=== PATIENT | female | born 1980 | race Caucasian/White ===

== ENCOUNTER 2025-05-15 09:24 | Emergency (ER) | payer BC, SELFPAY ==
--- OUTSIDE RECORDS SUMMARY | 2019-03-02 03:31 | XMS_ITS | Continuity of Care Document ---
Author Organization [facility] Address [address] [address] [place] [address] Phone Care Team Providers Care Conservation Coordinator Name Role Phone Garrett Arias CRNA Unavailable Unavailab le Allergies, Adverse Reactions, Alerts Substance Reaction Status Criticality Sulfa (Sulfonamide Antibiotics) Active No Information Medications Medication Instructions Dosage Effective Dates (start - stop) Status Comments Kariva (28) 0.15 mg-0.02 mg (21)/0.01 mg (5) tablet take 1 tablet by oral route every day 1.00 tablet - Active spironolactone 50 mg tablet take 1 Tablet by oral route every day 50 MG - Active Procedures Procedure Date Colonoscopy Flex; Dx (sep Pro) 19 Advance Directives Directive Yes / No Effective Date File Name No Information Encounters Encounter Description Practice Location Reason(s) For Visit Diagnoses Date Provider Providers Copied on Encounter [facility], [address] [address], [place], [place], [id number], [place] tel:[phone] [facility] No Information 9 Hugo Tucker. [address] [facility], [facility] [address], [place], [place], [id number], [place]. tel:[phone] [facility], [address] [address], [place], [place], [id number], [place] tel:[phone] [facility] Family history of colon cancerChange in bowel habitChange in bowel habitFamily history of malignant neoplasm of digestive organs 9 No Information Referring Provider: Reece Fernández MD M, [address] [place] [address], [place], [address]. tel:[phone] Family History Family Member Type Diagnosis Age At Onset No Information Payers Payer name Insurance type Covered democrat ID Authoriza tileah(s) [employer] [id number] Social History Type Description Quantity Date Captured Comments Sex Female Smoking Status No Information Chief Complaint And Reason For Visit No Information Reason For Referral Reason For Referral No Information History Of Present Illness Encounter Date Complaint History Of Prese nt Illness No Information Functional Status Date Functional Assessmen t No Information Instructions Date Instruction Additional Infor mation No Information Assessments Type Assessment Date No Information Patient Care Teams Name Effective Dates (start - stop) Status Members No Information
--- OUTSIDE RECORDS SUMMARY | 2019-03-02 03:31 | XMS_ITS | Continuity of Care Document ---
Author Organization [facility] Address [address] [address] [place] [address] Phone Care Team Providers Care Technical Spec Name Role Phone Garrett Arias CRNA Unavailable [...] Diagnoses Date Provider Providers Copied on Encounter [facility], [address] [address], [place], [place], [address], [place] tel:[phone] [facility] No Information [address] [facility], [facility] [address], [place], [place], [address], [place]. tel:[phone] [facility], [address] [address], [place], [place], [id number], [place] tel:[phone] [facility] Family history of colon cancerChange in bowel habitChange in bowel habitFamily history of malignant neoplasm of digestive organs 9 No Information Referring Provider: Reece Fernández MD M, [address] [place] [address], [place], [address]. tel:[phone] Family History Family Member Type Diagnosis Age At Onset No Information Payers Payer name Insurance type Covered constitution party ID Authoriza tileah(s) [employer] [id number] Social History Type Description Quantity Date Captured [...]
--- OUTSIDE RECORDS SUMMARY | 2025-05-15 09:27 | XMS_ITS | Encounter Summary ---
Author Organization [facility] Address [address] [place] [address] Care Team Providers Care Client Account Manager Name Role Phone Confirmed, No Pcp Primary Care Provider UnavailSujey Mota MD Unavailable [phone] [facility] Primary Care Provider Reece Fernández MD Primary Care Provider Dayami Clements MD Unavailable [phone] Reece Fernández MD Unavailable Unavailabl Rebecca Mccormick MD Unavailable [phone] Jeana Laurent MD Unavailable [phone] Jeana Laurent MD Unavailable [phone] Encounter Details Date Type Department Care Team (Late st Contact Info) Description 12/07/2015 Records - [facility] CONVERSION Scan, Non-Provider Social History Tobacco Use Types Packs/Day Years Used Date Smoking Tobacco: Never Alcohol Use Standard Drinks/Week Comments Not Asked 0 (1 standard drink = 0.6 oz pur e alcohol) Comments Unknown Sex and Gender Information Value Date Recorded Sex Assigned at Female 06/06/2022 9:25 AM CDT Legal Sex Female 3:18 PM [employer]ANSIT PL[employer]NER Gender Identity Female 06/06/2022 9:25 AM CDT Sexual Orientation Straight 06/06/2022 9: 25 AM CDT documented as of this encounter Plan of Treatment Not on file documented as of this encounter Visit Diagnoses Not on filedocumented in this encounter Care Teams Client Account Manager Relationship Specialty Start Date End Date Confirmed, No Pcp PCP - General 07/20/15 [facility] [address] [place] [address] PCP - General 02/24/17 07/12/17 Reece Fernández [place] [address] [place] [address] PCP - General Internal Medicine 07/13/17 Sujey Oden MD [address] [place], [place] [id number] loan coordinator 07/20/15 Dayami Keys MD [address] [place] [address] Assigned OBGYN Provider 07/06/20 1 2 Reece Fernández MD Assigned PCP 02/27/21 04/13/21 Rebecca Weiss MD [address] [place] [address] Assigned PCP 04/14/21 02/28/22 [place] [address] [place] [address] Assigned OBGYN Provider 09/06/22 Jeana Laurent MD [address] [facility], [address] [address] Assigned OBGYN Provider 08/06/24 documented as of this encounter
--- OUTSIDE RECORDS SUMMARY | 2025-05-15 09:27 | XMS_ITS | Clinical Summary ---
Author Organization [facility] Address [facility] [place] [address] Care Team Providers Care Edge Grinder Machine Name Role Phone Melida James MD Primary Care Provider [phone] Allergies Active Allergy Reactions Criticality Noted Date Comments Sulfa (Sulfonamide Antibiotics) Rash Low 02/2016 Medications multivitamin,the r and minerals (MULTIVITAMIN-FL NERALS THERAPEUTIC) tablet Take 1 Tab by mouth. Active levonorgestrel (MIRENA) 20 mcg/24 hours (8 yrs) 52 mg intrauterine device (IUD) Inject 20 mcg intrauterine. Active medication order composer Biotin and Nutrafall Active spironolactone 50 mg tabletIndication s:PCOS (polycystic ovarian syndrome) Take 1 Tablet (50 mg) by mouth once daily. 90 Tablet 2 02/09/20 25 Active acetaminophen (Tylenol Extra Strength) 500 mg tabletIndication s:Macromastia Take 1 Tablet (500 mg) by mouth every 8 hours if needed for Pain. Max acetaminophen dose: 4000mg in 24 hrs. 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 02/16/2017 - 2nd trimester urine culture obtained d/t history of UTIs [ ] History of parathyroidectomy 12/07/2015 PCOS (polycystic ovarian syndrome) 09/19/2015 Overview (07/06/2019): Overview: Early edmhgqa=764. 3h completed with 4 normal values 05/10/17: checking glucose levels 1x per week per endocrine who discontinued metformin. These glucose levels within normal range. Declines repeat glucose screening today. Agrees to increased glucose checks and will do QID BS levels for next 2 weeks.--> 05/21 reviewed WNL Reviewed with Dr Oden who recommends monthly growth US.- last done 05/21/17: EFW = 1,803 grams, 64 % for 30 weeks. Encounters Date Type Department Care Team Description 04/26/2025 10:30 AM CDT Office Visit [facility] [place] [facility] [address] [address] Ashley Rocha NP Follow Up (High risk/) 04/25/2025 Travel 04/04/2025 8:30 AM CDT Office Visit [facility] [address] [address] Champ Brambila MD Post-op (1 MO PO - Bilateral Breast Reduction) 04/04/2025 Travel 03/08/2025 Telephone [facility] [address] [address] Champ Brambila MD Results 03/07/2025 9:30 AM CDT Office Visit [facility] [address] [address] Tabatha Bonilla PA Post-op (bilateral breast reduction 1 wk post-op; DOS: 02/27/25/some fluid and sloshing; some skin reactions to adhesive; nipples sensitive, take tylenol prn) 03/06/2025 Travel 03/03/2025 Telephone [facility] [place] [facility] [address] [place] [address] Vane Louis RN Questions (Re: ALH on breast reduction) 03/03/2025 Telephone [facility] [address] [facility] [address] [place] [address] Champ Brambila MD Results 03/02/2025 Travel 02/28/2025 Telephone [facility] [address] [place] [address] [address] [place] [address] Champ Brambila MD Surgical Followup (S/p Bilateral Breast Reduction on 02/[address] Brambila) 02/27/2025 6:01 AM CDT - 02/27/2025 11:59 PM CDT Hospital Encounter Champ Brambila MD 02/27/2025 Lab Requisition [facility] [phone] Champ Brambila MD 02/27/2025 Orders Only [address] [place] [phone] Tabatha Bonilla PA <No scans attached> 02/27/[address] [place] [address] Champ Brambila MD Bilateral Breast Reduction, Axillary Liposuction, Back Liposuction 02/23/2025 Telephone [facility] [address] [facility] [address] [place] [address] Champ Brambila MD surgery (Questions re upcoming surgery on 02/27/25) 02/22/2025 Travel 02/14/2025 3:45 PM CDT Office Visit [facility] [address] [phone] Champ Brambila MD Surgical Discussion (Procedure: Bilateral Breast Reduction/DOS: 02/27/2025/Procedure : Champ Brambila MD//) 02/13/2025 Travel from Last 3 Months Immunizations Immunization Administration Dates Next Due COVID-19 vaccine (Moderna 100mcg/0.5mL) PF, MDV 07/16/2021,11/23/2020,10/24/2020 HPV 9 (Gardasil 9) 05/26/2024,01/21/2024, 024 INFLUENZA, IIV3 PF (AGE >= 6 MO) 06/20/2024 Influenza, IIV4 06/16/2023,,06/11/2021,2019,06/08/2017 Influenza, IIV4 (=>6mos) MDV 06/14/2019,06/15/20 18 Tdap 05/08/2017 Family History Medical History Relation Name Comments Coronary artery disease Father s/p bypass in 60s Depression Father Cancer-breast Maternal Aunt dx age 64 Cancer-colon Mother 47 years Cancer-breast Other mat first cousins 2 first m ateral cousins Cancer-ovarian Paternal Aunt dx age 62 Heart Disease Paternal Uncle CABG in 40s Anxiety disorder Sister Cancer-breast Sister Cancer-pancreatic No Family History Melanoma No Family History Relation Name Status Comments Father Alive Maternal Aunt Mother Alive Other mat first cousins Paternal Aunt Paternal Uncle Sister Alive Social History Tobacco Use Types Packs/Day Years Used Date Smoking Tobacco: Never Smokeless Tobacco: Never Tobacco Cessation:Counseling Given: Yes Alcohol Use Standard Drinks/Week Comments Yes 0 (1 standard drink = 0.6 oz pur e alcohol) occasional Humiliation, Afraid, Rape, and Kick questionnair e Answer Date Recorded Fear of Current or Ex-Partner No Emotionally Abused No 07/09/2020 Physically Abused No 07/09/2020 Sexually Abused No 07/09/2020 PHQ-2 Answer Date Recorded PHQ-2 TOTAL SCORE 0 02/11/2023 Social Connections Answer Date Recorded Do you often feel lonely or isolated from those around you? 0 09/01/2024 Financial Resource Strain Answer Date R ecorded Difficulty of Paying Living Expenses 3 09/01/2024 Difficulty of Paying Living Expenses Not on file 09/01/2024 Food Insecurity Answer Date Recorded Do you worry your food will run out before you are able to buy more? 1 09/01/2024 Transportation Needs Answer Date Record ed Does lack of transportation keep you from medica l appointments? 1 09/01/2024 Does lack of transportation keep you from work, meetings or getting things that you need? 1 09/01/2024 Housing Stability Answer Date Recorded What is your housing situation today? 1 09/01/2024 Utilities Answer Date Recorded Do you have trouble paying f or utilities (for example, heat, electricity, water, phone)? 1 09/01/2024 Comments No Sex and Gender Information Value Date Recorded Sex Assigned at Not on file Legal Sex Female 2:56 PM CDT Gender Identity Not on file Sexual Orientation Not on file Occupation Industry Job Start Date Job End Date Not on file Not on file Not on file Not on file Obstetrics History Para Term AB IAB SAB Ectopic Multiple Livin g Live Births 1 1 1 Date Outcome GA Total Labor Labor/2nd/3rd Weight Sex Type Anes PTL Noemi A1 A5 Name Clin Para Last Filed Vital Signs Vital Sign Reading Time Taken Comments Blood Pressure 116/72 04/26/2025 10:33 AM CDT Pulse 86 04/26/2025 10:33 AM CDT Temperature 36.1 C (96.9 F) 04/26/2025 10:33 AM CDT Respiratory Rate 16 04/26/2025 10:33 AM CDT Oxygen Saturation 100% 02/14/2025 3:48 PM CDT Inhaled Oxygen Concentration - - Weight 80.7 kg (178 lb) 04/26/2025 10:33 AM CDT Height 162.6 cm (5' 4) 04/26/2025 10:33 AM CDT Body Mass Index 30.55 04/26/2025 10:33 AM CDT Plan of Treatment Upcoming Encounters Date Type Department Care Team (Late st Contact Info) Description 05/30/2025 4:00 PM CDT Office Visit [facility] [address] [phone] Tabatha Bonilla, [place] [address] [place], [place] [phone] 06/29/2025 10:30 AM CDT Appointment [facility] [address] [place] [address] 01/05/2026 10:[address] [facility] [address] [place] [address] Health Maintenance Due Date Last Done Comments Hepatitis B series for 19+ (1 of 3 - 19+ 3-dose series) 1997 Pneumococcal series for age 6-49 (1 of 2 - PCV) 1997 Depression screening for age 12+ 02/12/2024 02/11/2023, 07/10/2021, 07/12/2020, Additional history exists Mammogram for age 45-75 04/22/2025 04/22/20 24, 04/07/2023, 03/26/2023, Additional history exists Influenza Vaccine (#1) 2025 , 06/16/2023, 06/16/2022, Additional history exists BMI (ht and wt on same day) for age 18+ 04/26/2026 04/26/2025, 04/04/2025, 03/07/2025, Additional history exists Tetanus booster 05/08/2027 05/08/2017 Pap test for age 21-65 09/01/2027 2 (Verified in Care Everywhere or Patient Record), 07/09/2020, 07/09/2020 Colonoscopy through age 75 03/11/202903/11, 03/11/2024, 03/11/2024, Additional history exists Lipids for age 45-75 09/01/2029 09/01/2024, 02/11/2023, 07/10/2021, Additional history exists RSV vaccine for adults or (1 - 1-dose 75+ series) 2053 HIV for age 15-65 Addressed 09/01/2022 (Ve rified in Care Everywhere or Patient Record) Overridden with the intention of not completing the topic Hepatitis C screening for age 18-79 Addressed 09/01/2022 (Verified in Care Everywhere or Patient Record) Overridden with the intention of not completing the topic COVID-19 vaccine series Completed 06/20/20, 06/16/2023, 06/27/2022, Additional history exists Procedures Procedure Name Priority Date/Time Associated Diagnosis Comments LAB TRACKING EVENT Routine 02/27/2025 8: 20 AM CDT PATH TISSUE EXAM Routine 02/27/2025 8:20 AM CDT LIPID PANEL W REFLEX MEASURED LDL Routine 09/01/2024 3:47 PM ADHESIVE SPRAYER Lipid screening XR MAMMO HOME BILAT SCREEN Routine 04/22/2024 9:15 AM CDT Encounter for screening mammogram for malignant neoplasm of breast COLONOSCOPY SCREENING Routine 03/11/2024 8:36 AM CDT Family history of colon cancer SKI TOPPER THIN PREP PAP SCREEN IMAGED Routine 07/09/2020 3:27 PM CDT Pap smear for cervical cancer screening SURGICAL PROCEDURE (TYPE PROCEDURE DESCRIPTION BELOW) Elective Breast hypertrophy in female Neck pain, chronic from Last 3 Months or Most Recently Relevant to Health Maintenance Results * LAB TRACKING EVENT (02/27/2025 8:20 AM CDT) Other (Other) Client Collect / Unknown 02/27/2025 8:20 AM CDT 02/27/2025 6:15 PM CDT us Champ Brambila MD LAB BILL ONLY Final R esult [facility] [address] [place] [address], * PATH TISSUE EXAM (02/27/2025 8:20 AM CDT) Case Report Pathology Report Case: [id number] Authorizing Provider: Champ Brambila MD Collected: 02/27/2025 0820 Ordering Location: [facility] Received: 02/27/20251817 Pathologist: Ariadna Guadalupe MD Specimens: A) - Right Breast Reduction B) - Left Breast Reduction 03/07/2025 1:45 PM CDT [facility] Amendment Additional immunostains and tissue were submitted for histologic evaluation on Specimen B, following initial finalization of this case, which reveal ADH. 03/07/2025 1:45 PM CDT [facility] Final Diagnosis A) RIGHT BREAST, REDUCTION MAMMOPLASTY: 1. Atypical lobular hyperplasia (ALH), see comment 2. Proliferative fibrocystic change 3. Benign skin 2. Negative for invasive malignancy B) LEFT BREAST, REDUCTION MAMMOPLASTY: 1. Atypical ductal hyperplasia (ADH), (see comment) 2. Proliferative fibrocystic change 3. Negative for invasive malignancy 03/07/2025 1:45 PM CDT [facility] Amendment electronically signed by Ariadna Guadalupe MD on 03/07/2025 at 1345 CDT at 1352 CDT Comment A) Lobular neoplasia has been identified as a risk factor for subsequent development of invasive carcinoma in either breast (1% absolute risk per year for ALH; 2% absolute risk per year for LCIS). Risk assessment with long-term follow-up is indicated. B) The finding of atypical ductal hyperplasia (ADH), also known as proliferative fibrocystic change with atypia is associated with increased risk of developing breast carcinoma to 4-5X that of the general population. Cumulative risk of breast cancer approaches 30% at 25 years of follow-up (1% absolute risk per year). High-risk management is warranted. 03/07/2025 1:45 PM CDT [facility] Clinical Information Bilateral breast reduction 03/07/2025 1:45 PM CDT [facility] Gross Description A) Received in formalin, labeled with the patient's name and a right breast tissue, is a 928 g, 25 x 12 x 7 cm aggregate of yellow-moran fibrofatty tissue and moran smooth unremarkable skin. The specimen is serially sectioned revealing yellow-moran cut surfaces consisting of approximately 60% yellow adipose tissue and 40% moran fibrous tissue. No discrete lesions are noted. Assurance Assistant sections are submitted in 3 cassettes. Time removed from patient: 0820 Time placed in formalin: 1005 Date removed and placed in formalin: 02/27/2025 The specimen was fixed in formalin for a minimum of 6 hours and not longer than 72 hours. B) Received in formalin, labeled with the patient's name and left breast reduction, is a 905g, 20 x 15 x 8 cm aggregate of yellow-moran fibrofatty tissue and moran smooth unremarkable skin. The specimen is serially sectioned revealing yellow-moran cut surfaces consisting of approximately 60% yellow adipose tissue and 40% moran fibrous tissue. No discrete lesions are noted. Assurance Assistant sections are submitted in 3 cassettes. Time removed from patient: 929 Time placed in formalin: 1100 Date removed and placed in formalin: 02/28/2025 The specimen was fixed in formalin for a minimum of 6 hours and not longer than 72 hours. JPW 02/28/2025 Additional sections are submitted in cassettes 4-13. LDW 03/06/2025 03/07/2025 1:45 PM CDT [facility] Microscopic Description The final diagnosis is based on microscopic examination of appropriate sections of all specimens. E-cadherin immunostain performed on blocks A2 and B3 shows loss of expression in area of interest (A2 only), supporting lobular neoplasia. Additional immunostains were performed on block B3 and reveal the following results: CK5/6: Negative in area of interest ER: Positive in area of interest 03/07/2025 1:45 PM CDT [facility] Additional Information [facility]ed at [facility] - [address], [place] [address] Immunohistochemis try controls were reviewed and approved as appropriate by the pathologist during this examination. 03/07/2025 1:45 PM CDT [facility] Other (Right Breast Reduction) 02/27/2025 8:20 AM CDT 02/27/2025 6:18 PM CDT Specimen (specimen) (Left Breast Reduction) 02/27/2025 8:20 AM CDT 02/27/2025 6:18 PM CDT Champ Brambila MD PATHOLOGY/CYTOLOGY Edit ed Result - Final [facility] [address] [place] [address], [place] * (ABNORMAL) LIPID PANEL W REFLEX MEASURED LDL (09/01/2024 3:47 PM ADHESIVE SPRAYER) CHOLESTEROL, TOTAL 212(H) <200 mg/dL [facility] HDL CHOLESTEROL 68 > OR = 50 mg/dL [facility] TRIGLYCERIDES 123 <150 mg/dL [facility] LDL-CHOLESTEROL 121(H) mg/dL (calc) [facility] Comment: Reference range: <100 Desirable range <100 mg/dL for primary prevention; <70 mg/dL for patients with CHD or diabetic patients with > or = 2 CHD risk factors. LDL-C is now calculated using the Neema calculation, which is a validated novel method providing better accuracy than the Friedewald equation in the estimation of LDL-C. Marquise SS et al. MICH. 2013;310(19): 6859-7131 (http://education.Excep Apps/faq/VLN437) CHOL/HDLC RATIO 3.1 <5.0 (calc) [facility] NON HDL CHOLESTEROL 144(H) <130 mg/dL (calc) [facility] Comment: For patients with diabetes plus 1 major ASCVD risk factor, treating to a non-HDL-C goal of <100 mg/dL (LDL-C of <70 mg/dL) is considered a therapeutic option. Blood BLOOD SPECIMEN / Unknown 09/01/2024 3:47 PM ADHESIVE SPRAYER 09/01/2024 3:47 PM ADHESIVE SPRAYER us Melida James MD CHEMISTRY Final Resul t [facility] [address] [place] [address], [place] [phone] [facility] [address] [place] [address] * XR MAMMO HOME BILAT SCREEN (04/22/2024 9:15 AM CDT) Anatomical Region Laterality Modality BREASTS, Breast Left, Breast Right Bilateral Mammography Impressions 04/22/2024 2:58 PM CDT There is no radiographic evidence for malignancy. Recommend annual mammograms. MAMMOGRAM ASSESSMENT: ACR 1 Negative PATIENTS: You will also receive a letter with your examination results in an easy to read format. If you have questions about your results, please contact your referring provider. Narrative 04/22/2024 2:58 PM CDT For Patients: As a result of the Century Cures Act, medical imaging exams and procedure reports are released immediately into your electronic medical record. You may view this report before your referring provider. If you have questions, please contact your health care provider. XR MAMMO HOME BILAT SCREEN [[id number]] CLINICAL HISTORY: This is an asymptomatic 44 y.o. patient. INDICATION FOR EXAM: Mammogram Screening. TECHNIQUE: CC & MLO views were obtained. This study was evaluated with the assistance of Computer-Aided Detection. Breast Tomosynthesis was used in interpretation. COMPARISON FILM: Yes 03/26/23 [facility] 02/21/22 [facility] FINDINGS: The breasts are heterogeneously dense, which may obscure small masses. There are no dominant masses, suspicious micro calcifications or areas of architectural distortion. us Melida James MD MAMMO Final Resul t * COLONOSCOPY (03/11/2024 9:02 AM CDT) 03/11/2024 9:02 AM CDT Narrative Transcriptions Marquise Mccray MD - 03/11/2024 9:57 AM CDT Patient Name: Miriam Rodriguez Procedure Date: 03/11/2024 Gender: Female Date of : 1980 Admit Type: Outpatient Procedure: Colonoscopy Proceduralist: Marquise Mccray MD , Eleonora Champion (Nurse), Cheri Hutson (Nurse) Referring MD: Melida James Indications/Pre-Op Diagnosis: Screening in patient at increased risk: Colorectal cancer in mother before age 60 Medications: Fentanyl 100 micrograms IV, Midazolam 4 mgIV, The level of sedation administered wasmoderate Procedure Description: The patient had risks, benefits and alternatives explained to andgave informed consent. The patient had a stable cardiopulmonary status and judged an adequate candidate for conscious sedation. The endoscope [id number] was passed through the anus andadvanced to the cecum, identified by appendiceal orifice and ileocecal valve.The colonoscopy was performed without difficulty. The patient toleratedthe procedure well. The quality of the bowel preparation was good. The ileocecal valve, appendiceal orifice, and rectum were photographed. Complications: No immediate complications. Estimated Blood Loss & Specimen: Estimated blood loss: none. Estimated blood loss: none. Specimen collected - None Findings: The perianal and digital rectal examinations were normal. The entire examined colon appeared normal on direct and retroflexion views. Impressions/Post-Op Diagnosis: - The entire examined colon is normal on direct and retroflexionviews. - No specimens collected. Recommendation: - Patient has a contact number available for emergencies. The signsand symptoms of potential delayed complications were discussed with the patient. Return to normal activities tomorrow. Written discharge instructions were provided to the patient. - Resume previous diet. - Continue present medications. - Repeat colonoscopy in 5 years for screening purposes. Moderate Sedation: A time out was performed before the procedure. Moderate (conscious) sedation was administered by the endoscopy nurse and supervised bythe endoscopist. The following parameters were monitored: oxygensaturation, heart rate, blood pressure, EKG, CO2, respiratory rate, adequacy of pulmonary ventilation and reponse to care. Please refer to the patient's medical record flowsheets and nursing notes for moderate sedation details. Total physician intraservice time was 18 minutes. Marquise Mccray MD 03/11/2024 9:57:25 AM This report has been signed electronically. Note Initiated On: 03/11/2024 9:02 AM Procedure Code(s): --- Professional --- 63988, Colonoscopy, flexible; diagnostic, including collection of specimen(s) bybrushing or washing, when performed (separateprocedure) Diagnosis Code(s): --- Professional --- Z80.0, Family history of malignant neoplasmof digestive organs CPT copyright 2022 [employer]. All rights reserved. The codes documented in this report are preliminary and upon compounding assistant reviewmay be revised to meet current compliance requirements. Scope In: 9:32:46 AM Scope Withdrawal Time 0 hours 6 minutes 8 seconds Scope Out: 9:49:23 AM us Marquise Mccray MD PROCEDURE ORD Final Res ult * SKI TOPPER THIN PREP PAP SCREEN IMAGED (07/09/2020 3:27 PM CDT) Case Report Gynecologic Cytology Report Case: [id number] Authorizing Provider: Jennifer Pitts MD Collected: 07/09/2020 1527 Ordering Location: [facility] Received: 07/09/2020 1657 Clinic First Screen: Flakito Garrett Specimen: SKI TOPPER ThinPrep Vial Screening, Cervical 07/16/2020 1:29 PM ADHESIVE SPRAYER [facility] INTERPRETATION/ RESULT NEGATIVE FOR INTRAEPITHELIAL LESION OR MALIGNANCY (NIL) (none) 07/16/2020 1:29 PM ADHESIVE SPRAYER [facility] at 1329 ADHESIVE SPRAYER SPECIMEN ADEQUACY Satisfactory for evaluation Endocervical component present 07/16/2020 1:29 PM ADHESIVE SPRAYER [facility] HPV REQUEST HPV and PAP 07/16/2020 1:29 PM ADHESIVE SPRAYER [facility] Date of LMP 07/06/2020 07/16/2020 1:29 PM ADHESIVE SPRAYER [facility] Last Pap Date 01/23/2016 07/16/2020 1:29 PM ADHESIVE SPRAYER [facility] Last Pap Result NIL 0 1:29 PM ADHESIVE SPRAYER [facility] Abnormal Pap or [place] Bx in last 5 years No 07/16/2020 1:29 PM ADHESIVE SPRAYER [facility] Menstrual Status Regular Periods 07/16/2020 1:29 PM ADHESIVE SPRAYER [facility] [place] Bx Done Today No 07/16/2020 1:29 PM ADHESIVE SPRAYER [facility] Additional Information None given 07/16/2020 1:29 PM ADHESIVE SPRAYER [facility] Comment: Cytology is screened at [facility] - [address], [place] [address] and [facility] - [address], [place] [address] and [facility] - [address] [place] [address] Interpreted at [facility] - [address] [place] [address] Automated Review Successful 07/16/2020 1:29 PM ADHESIVE SPRAYER [facility] Comment:Specimen processed s uccessfully by automated vehicle maintenance technician device, ThinPrep Imaging System, [employer] ANCILLARY TESTING SKI TOPPER HPV Ordered, Please see separate report 07/16/2020 1:29 PM ADHESIVE SPRAYER [facility] Note The pap test is a screening technique, not a diagnostic procedure. It is used primarily to screen for squamous cancers and precursor lesions. Published studies have shown that it is subject to both false negative and false positive results. The pap test should not be used as the sole means to diagnose or exclude pre-malignant and malignant lesions. 07/16/2020 1:29 PM [facility] Other (Cervical) Non-Blood / Unknown 07/09/2020 3:27 PM CDT 07/09/2020 4:57 PM CDT us Jennifer Pitts MD PATHOLOGY/CYTOLOGY Final Re sult [facility] [address] [place] [address], from Last 3 Months or Most Recently Relevant to Health Maintenance Insurance [facility] Care Teams Edge Grinder Machine Relationship Specialty Start Date End Date [place] [address] [address] PCP - General Family Practice 01/19/23
--- OUTSIDE RECORDS SUMMARY | 2025-05-15 09:27 | XMS_ITS | Encounter Summary ---
Author Organization [place] Address [facility] [place] [address] Care Team Providers Care Blowing Engineer Name Role Phone Confirmed, No Pcp Primary Care Provider UnavailSujey Mota MD Unavailable [phone] [facility] Primary Care Provider Reece Fernández MD Primary Care Provider Dayami Clements MD Unavailable [phone] Reece Fernández MD Unavailable UnavailRebecca Galindo MD Unavailable [phone] Jeana Laurent MD Unavailable [phone] Jeana Laurent MD Unavailable [phone] Reason for Referral * - Closed Specialty Diagnoses / Procedures Referred By Contcassandra t Referred To Contact Diagnoses related condition, unspecified trimester Vane Page APRN CNM [address] [facility] [address] [place] [address] Phone: tel: fax: Referral ID Status Reason Start Date Expiration Date Visits Re quested Visits Authorized [id number] Closed 12/29/2016 12/29/2017 1 1 Comments AMA Encounter Details Date Type Department Care Team (Late st Contact Info) Description 12/29/2016 [facility] [place] [address] [place] [address] Vane Page APRN [facility] [address] [place], [place] [id number] related condition, unspecified trimester (Primary Dx) Social History Tobacco Use Types Packs/Day Years Used Date Smoking Tobacco: Never Smokeless Tobacco: Never Alcohol Use Standard Drinks/Week Comments No 0 (1 standard drink = 0.6 oz pur e alcohol) Comments Yes Sex and Gender Information Value Date Recorded Sex Assigned at Female 06/06/2022 9:25 AM CDT Legal Sex Female 3:18 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 Gender Identity Female 06/06/2022 9:25 AM CDT Sexual Orientation Straight 06/06/2022 9: 25 AM CDT 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 2) None of the anomalies commonly detected by ultrasound were evident in the detailed anatomic survey described above. The spine was suboptimally seen due to position. No markers for aneuploidy were noted. 3) Growth parameters and estimated weight were consistent with an appropriate for gestation age pattern of growth. 4) The amniotic fluid volume appeared normal. Narrative 02/23/2017 9:44 AM CDT Comprehensive ----- Pat. Name: MIRIAM AMES Study Date: 02/23/2017 9:44am Pat. NO: [id number] Referring MD: VANE PAGE Site: [facility] Supervisor Sunglasses: Manoj Koehler RDMS : 1980 Age: 37 ----- INDICATION ----- Advanced Maternal Age--Primigravida, maternal hypoplastic left kidney. METHOD ----- Transabdominal ultrasound examination. View: Sufficient. Good view. Suboptimal spine view: limited by position. ----- [place]nor . Number of fetuses: 1. DATING ----- Date Details Gest. age MARIA ESTHER LMP 10/19/2016 18 w + 1 d 07/26/2017 Conception 11/02/2016 Ovulation induced by ovulation drugs 18 w + 1 d 07/26/2017 External assessment 12/15/2016 GA: 8 w + 3 d 18 w + 3 d 07/24/2017 U/S 02/23/2017 based upon AC, BPD, Femur, HC 18 w + 4 d 07/23/2017 Assigned dating Dating performed on 01/12/2017, based on the conception date 18 w + 1 d 07/26/2017 GENERAL EVALUATION ----- Cardiac activity: present. FHR 152 bpm. movements: visualized. Presentation: breech, Variable. Placenta: anterior, no previa . Umbilical cord: 3 vessel cord. Amniotic fluid: Amount of AF: normal amount. MVP 6.8 cm. RY 18.7 cm. Q1 6.8 cm, Q2 4.0 cm, Q3 5.4 cm, Q4 2.6 cm. BIOMETRY ----- Main Biometry: BPD 40.6 mm 18w 2d Hadlock OFD 57.2 mm 18w 6d Nicolaides HC 157.5 mm 18w 4d Hadlock AC 135.3 mm 19w 0d Hadlock Femur 28.1 mm 18w 4d Hadlock Cerebellum tr 19.4 mm 18w 5d Nicolaides CM 3.0 mm Humerus 28.1 mm 19w 0d Ophelia Weight Calculation: EFW 255 g EFW (lb,oz) 0 lb 9 oz Calculated by Felton (HC-AC-FL) Head / Face / Neck Biometry: Hazardous Substances Engineer 4.1 mm Nasal bone 5.2 mm Amniotic Fluid / FHR: AF MVP 6.8 cm RY 18.7 cm FHR 152 bpm ANATOMY ----- The following structures appear normal: Head / Neck Cranium. Head size. Head shape. Lateral ventricles. Choroid plexus. Midline falx. Cavum septi pellucidi. Cerebellum. Cisterna magna. Thalami. Neck. Nuchal fold. Face Lips. Profile. Nose. Orbits. Heart / Thorax 4-chamber view. RVOT. LVOT. Aortic arch. Bicaval view. Ductal arch. 0-pgqbzr-ftupkmo view. Cardiac position. Cardiac size. Cardiac rhythm. Diaphragm. Abdomen Abdominal wall. Cord insertion. Stomach. Kidneys. Bladder. Liver. Bowel. Extremities Arms. Legs. The following structures could not be adequately visualized: Spine / Skelet. Cervical spine. Thoracic spine. Lumbar spine. Sacral spine. Gender: female. MATERNAL STRUCTURES ----- Cervix Visualized, Appears Closed. Cervical length 37.8 mm. Right Ovary Visualized. Left Ovary Visualized. RECOMMENDATION ----- We discussed the findings on today's ultrasound with the patient. Patient had a normal cell free DNA screen. A repeat ultrasound has been scheduled here in 3-4 weeks to reevaluate anatomy. Return to primary provider for continued care. Thank you for the opportunity to participate in the care of this patient. If you have questions regarding today's evaluation or if we can be of further service, please contact the [facility]. anomalies may be present but not detected. Procedure Note Karen Elder, DO - 02/25/2017 Comprehensive ----- Pat. Name:Anel AMES Date:02/23/2017 9:44am Pat. NO: [id number] MD:VANE PAGE [facility]:Manoj Koehler RDMS :1980Age:37 ----- INDICATION ----- Advanced Maternal Age--Primigravida, maternal hypoplastic left kidney. METHOD ----- Transabdominal ultrasound examination. View: Sufficient. Good view.Suboptimal spine view: limited by position. ----- [place] . Number of fetuses: 1. DATING ----- DateDetailsGest. age MARIA ESTHER LMP 10/19/201618 w + 1 d 07/26/2017 Conception 11/02/2016Ovulation induced by ovulation drugs18 w + 1 d 07/26/2017 External assessment 12/15/2016 GA: 8 w + 3d18 w + 3 d 07/24/2017 U/S 02/23/2017based upon AC, BPD, Femur, HC18 w + 4 d 07/23/2017 Assigned dating Dating performed on 01/12/2017, based onthe conception date 18 w + 1d 07/26/2017 GENERAL EVALUATION ----- Cardiac activity: present. FHR 152 bpm. movements: visualized. Presentation: breech, Variable. Placenta: anterior, no previa . Umbilical cord: 3 vessel cord. Amniotic fluid: Amount of AF: normal amount. MVP 6.8 cm. RY 18.7 cm. Q16.8 cm, Q2 4.0 cm, Q3 5.4 cm, Q4 2.6 cm. BIOMETRY ----- Main Biometry: BPD 40.6 mm18w 2d Hadlock OFD 57.2 mm18w 6d Nicolaides HC 157.5 mm18w 4d Hadlock AC 135.3 mm19w 0d Hadlock Femur 28.1 mm18w 4d Hadlock Cerebellum tr 19.4 mm18w 5d Nicolaides CM 3.0 mm Humerus 28.1 mm19w 0d Ophelia Weight Calculation: EFW 255 g EFW (lb,oz) 0 lb 9 oz Calculated by Felton (HC-AC-FL) Head / Face / Neck Biometry: Hazardous Substances Engineer 4.1 mm Nasal bone 5.2 mm Amniotic Fluid / FHR: AF MVP 6.8 cm RY 18.7 cm FHR 152 bpm ANATOMY ----- The following structures appear normal: Head / Neck Cranium. Head size. Head shape.Lateral ventricles. Choroid plexus. Midline falx. Cavum septi pellucidi.Cerebellum. Cisterna magna. Thalami. Neck. Nuchal fold. Face Lips. Profile. Nose. Orbits. Heart / Thorax 4-chamber view. RVOT. LVOT. Aorticarch. Bicaval view. Ductal arch. 5-inxcyb-dppbplv view. Cardiac position.Cardiac size. Cardiac rhythm. Diaphragm. Abdomen Abdominal wall. Cord insertion.Stomach. Kidneys. Bladder. Liver. Bowel. Extremities Arms. Legs. The following structures could not be adequately visualized: Spine / Skelet. Cervical spine. Thoracic spine. Lumbarspine. Sacral spine. Gender: female. MATERNAL STRUCTURES ----- Cervix Visualized, Appears Closed. Cervical length 37.8 mm. Right Ovary Visualized. Left Ovary Visualized. RECOMMENDATION ----- We discussed the findings on today's ultrasound with the patient. Patient had a normal cell free DNA screen. A repeat ultrasound has been scheduled here in 3-4 weeks to reevaluatefetal anatomy. Return to primary provider for continued care. Thank you for the opportunity to participate in the care of this patient.If you have questions regarding today's evaluation or if we can be offurther service, please contact the [facility] Center. anomalies may be present but not detected. IMPRESSION ----- 1) Intrauterine at 18 1/7 weeks gestational age. 2) None of the anomalies commonly detected by ultrasound were evident inthe detailed anatomic survey described above. The spine wassuboptimally seen due to position. No markers for aneuploidy were noted. 3) Growth parameters and estimated weight were consistent with anappropriate for gestation age pattern of growth. 4) The amniotic fluid volume appeared normal. us Vane Martínrocio HIGHTOWER CNM IMG MFM US ORDERABLES Ed ited Result - Final * MFM Nuchal Transluc w US Single (01/12/2017 2:19 PM CDT) Anatomical Region Laterality Modality Ultrasound 01/12/2017 1:50 PM CDT Impressions 01/12/2017 3:58 PM CDT IMPRESSION ----- 1) Intrauterine at 12 1/7 weeks gestational age. 2) The nuchal translucency measurement is within the normal range. 3) The nasal bone was visualized. Narrative 01/12/2017 3:58 PM CDT NT ----- Pat. Name: MIRIAM AMES Study Date: 01/12/2017 1:50pm Pat. NO: [id number] Referring MD: VANE PAGE Site: [facility] Supervisor Sunglasses: Leonila Pina RDMS : 1980 Age: 37 ----- INDICATION ----- Advanced Maternal Age--Primigravida. Nuchal Translucency Assessment with NIPT. METHOD ----- Transabdominal ultrasound examination. ----- [place] . Number of fetuses: 1. DATING ----- Date Details Gest. age MARIA ESTHER LMP 10/19/2016 12 w + 1 d 07/26/2017 Conception 11/02/2016 Ovulation induced by ovulation drugs 12 w + 1 d 07/26/2017 External assessment 12/15/2016 GA: 8 w + 3 d 12 w + 3 d 07/24/2017 U/S 01/12/2017 based upon CRL 13 w + 1 d 07/19/2017 Assigned dating Dating performed on 01/12/2017, based on the conception date 12 w + 1 d 07/26/2017 GENERAL EVALUATION ----- Cardiac activity: present. Placenta: anterior. Cord vessels: normal insertion. Amniotic fluid: normal amount. BIOMETRY ----- CRL 68.2 mm 13w 1d Hadlock NT 1.4 mm FHR 165 bpm ANATOMY ----- The following structures appear normal: Neck. The following structures were visualized: Cranium. Face: Nasal bone present. Abdominal wall. GI tract. Urogenital tract. Arms. Legs. MATERNAL STRUCTURES ----- Cervix Visualized, Appears Closed. Right Ovary Visualized. Left Ovary Visualized. RECOMMENDATION ----- We discussed the findings on today's ultrasound with the patient. Your patient had cell-free DNA screening (the verifi screen) drawn today. The results of the screen will be forwarded to you as soon as they become available. Because cell-free DNA screening does not screen for open neural tube defects, the patient should be offered MSAFP screening at 15-20 weeks gestation. Comprehensive US is recommended at 18-20 weeks gestation. Return to primary provider for continued care. Thank-you for the opportunity to participate in the care of this patient. If you have questions regarding today's evaluation or if we can be of further service, please contact the [facility]. anomalies may be present but not detected. Procedure Note Karen Elder, - 01/12/2017 NT ----- Pat. Name:Portillo AMESdenveramy Date:01/12/2017 1:50pm Pat. NO: [id number] MD:VANE PAGE [facility]Leonila Pina RDMS :1980Age:37 ----- INDICATION ----- Advanced Maternal Age--Primigravida. Nuchal Translucency Assessment withNIPT. METHOD ----- Transabdominal ultrasound examination. ----- [place] . Number of fetuses: 1. DATING ----- DateDetailsGest. age MARIA ESTHER LMP 10/19/201612 w + 1 d 07/26/2017 Conception 11/02/2016Ovulation induced by ovulation drugs12 w + 1 d 07/26/2017 External assessment 12/15/2016 GA: 8 w + 3d12 w + 3 d 07/24/2017 U/S 01/12/2017based upon CRL13 w + 1 d 07/19/2017 Assigned dating Dating performed on 01/12/2017, based onthe conception date 12 w + 1d 07/26/2017 GENERAL EVALUATION ----- Cardiac activity: present. Placenta: anterior. Cord vessels: normal insertion. Amniotic fluid: normal amount. BIOMETRY ----- CRL 68.2 mm13w 1d Hadlock NT 1.4 mm FHR 165 bpm ANATOMY ----- The following structures appear normal: Neck. The following structures were visualized: Cranium. Face: Nasal bone present. Abdominal wall. GI tract. Urogenitaltract. Arms. Legs. MATERNAL STRUCTURES ----- Cervix Visualized, Appears Closed. Right Ovary Visualized. Left Ovary Visualized. RECOMMENDATION ----- We discussed the findings on today's ultrasound with the patient. Your patient had cell-free DNA screening (the verifi screen) drawn today.The results of the screen will be forwarded to you as soon as they becomeavailable. Because cell-free DNA screening does not screen for open neural tube defects, thepatient should be offered MSAFP screening at 15-20 weeks gestation. Comprehensive US is recommended at 18-20 weeks gestation. Return to primary provider for continued care. Thank-you for the opportunity to participate in the care of this patient.If you have questions regarding today's evaluation or if we can be offurther service, please contact the [facility] Center. anomalies may be present but not detected. IMPRESSION ----- 1) Intrauterine at 12 1/7 weeks gestational age. 2) The nuchal translucency measurement is within the normal range. 3) The nasal bone was visualized. us Vane Page [facility]N [facility] US ORDERABLES Ed ited Result - Final documented in this encounter Visit Diagnoses Diagnosis related condition, unspecified trimester- Primary related condition, unspecified trimester related condition, unspecified trimester documented in this encounter Additional Health Concerns Assessment Noted Time PHQ-9 Depression Total Score: 0 01/24/20 16 7:15 AM CDT documented as of this encounter Care Teams Blowing Engineer Relationship Specialty Start Date End Date Confirmed, No Pcp PCP - General 07/20/15 02/23/17 Center - [facility] [address] [place] [address] PCP - General 02/24/17 07/12/17 Reece Fernández [place] [address] [place] [address] PCP - General Internal Medicine 07/13/17 Sujey Oden MD [address] [place] [address] remote encoding center manager 07/20/15 Dayami Keys MD [address] [place], [place] [address] Assigned OBGYN Provider 07/06/20 1 2 Reece Fernández MD Assigned PCP 02/27/21 04/13/21 Rebecca Weiss MD [address] [place] [address] Assigned PCP 04/14/21 02/28/22 [place] [address] [place], [place] [id number] Assigned OBGYN Provider 09/06/22 Jeana Laurent MD [address] [address] Assigned OBGYN Provider 08/06/24 documented as of this encounter
--- OUTSIDE RECORDS SUMMARY | 2025-05-15 09:27 | XMS_ITS | Encounter Summary ---
Author Organization [place] Address [address] [place] [address]. [place] [address] Care Team Providers Care Powertrain Design Engineer Name Role Phone Sujey Oden MD Unavailable [phone] Reece Fernández MD Primary Care Provider Unav ailable Jeana Laurent MD Unavailable [phone] Encounter Details Date Type Department Care Team (Late st Contact Info) Description 02/01/2025 Results Follow-Up [facility] - Womens and Child Service Line [address] [place] [address] Jeana Laurent MD [address], [facility] [address] [place], [place] [address] Subj: Message about your results Social History Tobacco Use Types Packs/Day Years Used Date Smoking Tobacco: Never Smokeless Tobacco: Never Alcohol Use Standard Drinks/Week Comments No 0 (1 standard drink = 0.6 oz pur e alcohol) PHQ-2 Answer Date Recorded PHQ-2 Score 0 02/17/2025 Adolescent Education Answer Date Record ed Getting School Help Needed Not on file 06/05 Comments No Sex and Gender Information Value Date Recorded Sex Assigned at Female 06/06/2022 9:25 AM CDT Legal Sex 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 Gender Identity Female 06/06/2022 9:25 AM CDT Sexual Orientation Straight 06/06/2022 9: 25 AM CDT 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 on file Not on file documented as of this encounter Plan of Treatment Not on file documented as of this encounter Visit Diagnoses Not on filedocumented in this encounter Additional Health Concerns Assessment Noted Time PHQ-9 Depression Total Score: 0 09/04/20 17 11:12 AM STEM PROCESSING MACHINE OPERATOR documented as of this encounter Care Teams Powertrain Design Engineer Relationship Specialty Start Date End Date Reece Fernández MD [address] [place] [address] PCP - General Internal Medicine 07/13/17 Sujey Oden MD [address] [place] [address] business system manager 07/20/15 Jeana Laurent MD [address], [address] [place], [place] [address] Assigned OBGYN Provider 08/06/24 documented as of this encounter
--- OUTSIDE RECORDS SUMMARY | 2025-05-15 09:27 | XMS_ITS | Encounter Summary ---
Author Organization [place] Address [address] [facility] [place] [address] Care Team Providers Care Canine Enforcement Officer Name Role Phone Confirmed, No Pcp Primary Care Provider UnavailSujey Mota MD Unavailable [phone] [facility] Primary Care Provider Reece Fernández MD Primary Care Provider Dayami Clements MD Unavailable [phone] Reece Fernández MD Unavailable Unavailabl Rebecca Mccormick MD Unavailable [phone] Jeana Laurent MD Unavailable [phone] Jeana Laurent MD Unavailable [phone] Encounter Details Date Type Department Care Team (Late st Contact Info) Description 12/23/2016 MyC Medical Advice [facility] [place] [address] [facility] [address] [place] [address] Christiane Corey, [facility] [address] [place] [address] Social History Tobacco Use Types Packs/Day Years Used Date Smoking Tobacco: Never Smokeless Tobacco: Never Alcohol Use Standard Drinks/Week Comments No 0 (1 standard drink = 0.6 oz pur e alcohol) Comments Yes Sex and Gender Information Value Date Recorded Sex Assigned at Female 06/06/2022 9:25 AM CDT Legal Sex Female 3:18 PM CYCLE ANALYST Gender Identity Female 06/06/2022 9:25 AM CDT [...] documented as of this encounter Care Teams Canine Enforcement Officer Relationship Specialty Start Date End Date Confirmed, No Pcp PCP - General 07/20/15 02/23/17 [facility] [address] [place] [address] PCP - General 02/24/17 07/12/17 Reece Fernández [place] [address] [place] [address] PCP - General Internal Medicine 07/13/17 Sujey Oden MD [address] [place] [address] club concierge 07/20/15 Dayami Keys MD [address] [place] [address] Assigned OBGYN Provider 07/06/20 2 Reece Fernández MD Assigned PCP 02/27/21 04/13/21 Rebecca Weiss MD [address] [place] [address] Assigned PCP 04/14/21 02/28/22 [place] [address] [place] [address] Assigned OBGYN Provider 09/06/22 Jeana Laurent MD [address] [facility], [address] [address] Assigned OBGYN Provider 08/06/24 documented as of this encounter
--- OUTSIDE RECORDS SUMMARY | 2025-05-15 09:27 | XMS_ITS | Encounter Summary ---
Author Organization [place] Address [address] [facility] [place] [address] Care Team Providers Care Office Agent Name Role Phone Confirmed, No Pcp Primary Care Provider UnavailSujey Mota MD Unavailable [phone] [facility] Primary Care Provider Reece Fernández MD Primary Care Provider Dayami Clements MD Unavailable [phone] Reece Fernández MD Unavailable Unavailabl Rebecca Mccormick MD Unavailable [phone] Jeana Laurent MD Unavailable [phone] Jeana Laurent MD Unavailable [phone] Encounter Details Date Type Department Care Team (Late st Contact Info) Description 01/07/2017 MyC Medical Advice [facility] [place] [address] [place] [address] [address] Floor,[address] [facility] [address] [place] [phone] Mana Kerns, EMELY Social History Tobacco Use Types Packs/Day Years Used Date Smoking Tobacco: Never Smokeless Tobacco: Never Alcohol Use Standard Drinks/Week Comments No 0 (1 standard drink = 0.6 oz pur e alcohol) Comments Yes Sex and Gender Information Value Date Recorded Sex Assigned at Female 06/06/2022 9:25 AM CDT Legal Sex Female 3:18 PM WHARF HELPER Gender Identity Female 06/06/2022 9:25 AM CDT [...] documented as of this encounter Care Teams Office Agent Relationship Specialty Start Date End Date Confirmed, No Pcp PCP - General 07/20/15 02/23/17 [facility] [address] [place] [address] PCP - General 02/24/17 07/12/17 Reece Fernández [place] [address] [place] [address] PCP - General Internal Medicine 07/13/17 Sujey Oden MD [address] [place], [place] [address] manager registration 07/20/15 Dayami Keys MD [address] [place], [place] [address] Assigned OBGYN Provider 07/06/20 2 Reece Fernández MD Assigned PCP 02/27/21 04/13/21 Rebecca Weiss MD [address] [place] [address] Assigned PCP 04/14/21 02/28/22 [place] [address] [place] [address] Assigned OBGYN Provider 09/06/22 Jeana Laurent MD [address] [address] Assigned OBGYN Provider 08/06/24 documented as of this encounter
--- OUTSIDE RECORDS SUMMARY | 2025-05-15 09:27 | XMS_ITS | Clinical Summary ---
Author Organization [facility] Address [address] [place] [address] Care Team Providers Care Professor Of Forest Planning Name Role Phone Sujey Oden MD Unavailable [phone] Reece Fernández MD Primary Care Provider Unav Jeana Baxter MD Unavailable [phone] Allergies Active Allergy Reactions Criticality Noted Date Comments Sulfa Antibiotics Rash Low 09/19/2015 Medications CRANBERRY EXTRACT PO Active multivitamin w/minerals (THERA-VIT-M) tablet Take 1 tablet by mouth daily Active spironolactone (ALDACTONE) 50 MG tablet Take 50 mg by mouth 06/02/20 18 Active levonorgestrel (MIRENA) 20 MCG/DAY IUDIndications:En counter for insertion of intrauterine contraceptive device 1 each (20 mcg) by Intrauterine route once Active Active Problems Problem Noted Date Diagnosed Date S/P section 07/16/2017 -induced hypertension in third trimeste r 07/13/2017 Gestational hypertension 07/13/2017 Multiple nevi 06/30/2017 Seborrheic keratosis 06/30/2017 History of dysplastic nevus 06/30/2017 Excessive growth affec ting management of in third trimester, single or unspecified fetus, LGA 06/23/17 06/29/2017 Overview (06/29/2017): 06/23/17: LGA- 92%tile, AC>97%tile, repeat scan 3-4 weeks Antepartum anemia in third trimester 05/09/2017 Overview (06/23/2017): 05/09/2017 - IV iron infusion ordered x3- 05/15, 05/27, 06/02. PO iron, Vitamin C and Vitamin B12 sent to pharmacy. Mychart sent. 05/21/17: Discussed plan to recheck CBC 2 weeks after iron infusion on 06/02 Next appointment- CBC With plts 06/23/17: CBC ordered. Research study patient- [facility] k if patient has occlusive device when admitted to L and D for labor 04/17/2017 Advanced maternal age, 1st - [facility] CNM 0 01/13/2017 Overview (06/29/2017): 01/12/17- MFM US- first trimester screen WNL, verifi Normal 02/16/2017 - Anatomy scan scheduled. Continue Metformin per Milton CALDERON - endocrine follow up next week. Planning urology follow up MSAFP ordered - decided against it 03/23/2017 - Undecided CNM vs MD- Will see CNM for EOB and then decide. - Stopped metformin on Thursday, will check BS per endocrine and f/u with them - Had urology referral with follow up planned for - Breast Pump RX given. Planning tour. Has CBE and classes scheduled 04/20/2017: Normal follow up Level II - further ultrasounds as clinically indicated. 05/08/17: Reviewed chart with Dr Oden. Plan growth US q4 weeks 05/21/17: Interested in WB- plan to sign consent at next visit _signed on 06/10___ 06/23/17: LGA- 92%tile, AC>97%tile, repeat scan 3-4 weeks 06/29/2017: GBS collected Renal hypoplasia, unilateral , left, unknown diagnosis per pt report 12/16/2016 Overview (02/16/2017): 12/16/2016: Unsure of actual diagnosis; pt states left kidney is smaller than the other Urology consult placed- will determine diagnosis and any needed follow up. 02/16/2017 - 2nd trimester urine culture obtained d/t history of UTIs [ ] PCOS (polycystic ovarian syndrome) 09/19/2015 Overview (06/12/2017): Early [id number]=211. 3h completed with 4 normal values 05/10/17: [...] 1,803 grams, 64 % for 30 weeks. Resolved Problems Problem Noted Date Diagnosed Date Resolved Date Encounter for initial prescr iption of contraceptive pills - restarted Karvia. Plan BP check 02/24/2018 07/19/2024 Labor and delivery, indication for care 07/13/2017 09/04/2017 Supervision of normal first in first trimester, 12/15/2016 02/16/2017 Overview (12/29/2016): @ 8+1, MARIA ESTHER 07/26/17 by lmp with Ovadril and femara- was seeing CRM Needs GC/CT at [facility] *HR rounds- on 200mg qday metformin for PCOS- fine to continue Per Dr. Keys ok to continue if pt desires 12/15/2016: HbgA1C ordered, plan early 1 hour glucose screening at [facility] ____ 12/23/2016: Reviewed at HR rounds with Dr. Keys- may continue Metformin if desires, plan early 1 hour glucose. Attempted to reach pt by telephone, MyC message sent. Encounters Date Type Department Care Team Description 02/17/2025 2:30 PM CDT Virtual Visit [facility] [address] [place] [address] Jeana Laurent MD Pelvic pain in female (Primary Dx); Uterine leiomyoma, unspecified location; Family history of malignant neoplasm of breast from Last 3 Months Immunizations Immunization Administration Dates Next Due Influenza Vaccine >6 months,quad, PF 06/08/2017 TDAP Vaccine (Boostrix) 05/08/2017 Family History Medical History Relation Comments Hypertension Brother Hypertension Father Obesity Father Colon Cancer Mother Hypertension Mother Breast Cancer Sister Hypertension Sister Relation Status Comments Brother Father Alive Maternal Grandfather Maternal Grandmother Mother Alive Paternal Grandmother Sister Social History Tobacco Use Types Packs/Day Years Used Date Smoking Tobacco: Never Smokeless Tobacco: Never Tobacco Cessation:Counseling Given: No Alcohol Use Standard Drinks/Week Comments No 0 (1 standard drink = 0.6 oz pur e alcohol) PHQ-2 Answer Date Recorded PHQ-2 Score 0 02/17/2025 Adolescent Education Answer Date Record ed Getting School Help Needed Not on file 06/05 Comments No Sex and Gender Information Value Date Recorded Sex Assigned at Female 06/06/2022 9:25 AM CDT Legal Sex Female 3:18 PM AUTO BODY MECHANIC APPRENTICE Gender Identity Female 06/06/2022 9:25 AM CDT Sexual Orientation Straight 06/06/2022 9: 25 AM CDT 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 on file Not on file Last Filed Vital Signs Vital Sign Reading Time Taken Comments Blood Pressure 122/80 07/18/2024 1:43 PM AUTO BODY MECHANIC APPRENTICE Pulse 76 03/12/2020 3:40 PM CDT Temperature 36.7 C (98.1 F) 07/19/2017 8:44 AM AUTO BODY MECHANIC APPRENTICE Respiratory Rate 18 07/19/2017 8:44 AM AUTO BODY MECHANIC APPRENTICE Oxygen Saturation 100% 10/07/2017 8:09 AM AUTO BODY MECHANIC APPRENTICE Inhaled Oxygen Concentration - - Weight 78.9 kg (174 lb) 07/18/2024 1:43 PM AUTO BODY MECHANIC APPRENTICE Height 162.6 cm (5' 4) 09/01/2022 10:54 AM AUTO BODY MECHANIC APPRENTICE Body Mass Index 29.87 09/01/2022 10:54 AM AUTO BODY MECHANIC APPRENTICE Plan of Treatment Health Maintenance Due Date Last Done Comments ADVANCE CARE PLANNING 1980 ANNUAL REVIEW OF HM ORDERS 1978 CT COLONOGRAPHY 1978 FIT 1978 FLEX SIG 1978 sDNA (Cologuard) 1978 HEPATITIS B VACCINE (1 of 3 - 19+ 3-dose series) 1997 DIABETES SCREENING 04/08/2021 04/08/2018, 0 04/08/2018, 07/14/2017, Additional history exists LIPID 04/08/2023 04/08/2018, 12/11/2015 INFLUENZA VACCINE (#1) 2025 , 06/16/2023, 06/16/2022, Additional history exists YEARLY PREVENTIVE VISIT 09/01/2025 09/01/20 24, 07/18/2024, 02/11/2023, Additional history exists MAMMO SCREENING 04/22/2026 04/22/2024, 0805/2024, 03/26/2023, Additional history exists DTAP/TDAP/TD VACCINE (2 - Td or Tdap) 05/08/2027 05/08/2017 HPV TEST 09/01/2027 09/01/2022, 06/15, 01/23/2016, Additional history exists PAP 09/01/2027 09/01/2022, 06/15, 07/09/2020, Additional history exists ZOSTER VACCINE (1 of 2) 01/09/2028 COLONOSCOPY 03/11/2034 03/11/2024, 02/12, 03/02/2019 COLORECTAL CANCER SCREENING 03/11/2034 HPV VACCINE Completed 05/26/2024, 05/0 05/2024, 10/30/2023 COVID-19 VACCINE Completed 06/20/2024, 11/2022, 06/27/2022, Additional history exists HEPATITIS C SCREENING Completed 07/18/2024 , 09/01/2022, 05/08/2017 HIV SCREENING Completed 07/18/2024, 08/14, 12/15/2016 PHQ-2 (once per calendar year) Completed 02/17/2025, 07/18/2024, 09/04/2017, Additional history exists MENINGITIS VACCINE Aged Out No longer eligible based on patient's age to complete this topic PNEUMOCOCCAL VACCINE: PEDIATRICS (0 to 5 YEARS) AND AT-RISK PATIENTS (6 to 49 YEARS) Aged Out No longer eligible based on patient's age to complete this topic Procedures Procedure Name Priority Date/Time Associated Diagnosis Comments HIV ANTIGEN ANTIBODY COMBO Routine 07/18/2024 2:45 PM AUTO BODY MECHANIC APPRENTICE Screening examination for STI HEPATITIS C ANTIBODY Routine 07/18/2024 2:45 PM AUTO BODY MECHANIC APPRENTICE Screening examination for STI GYNECOLOGIC CYTOLOGY Routine 09/01/2022 11:21 AM AUTO BODY MECHANIC APPRENTICE Screening for cervical cancer HPV HIGH RISK TYPES DNA CERVICAL Routine 09/01/2022 11:21 AM AUTO BODY MECHANIC APPRENTICE Screening for cervical cancer COLONOSCOPY - HIM SCAN 03/02/2019 MA DIAGNOSTIC RIGHT W BLACK Routine 09/15/2018 3:32 PM AUTO BODY MECHANIC APPRENTICE Abnormal mammogram of right breast BASIC METABOLIC PANEL Routine 04/08/2018 11:51 AM CDT LIPID PROFILE Routine 04/08/2018 11:51 AM CDT from Last 3 Months or Most Recently Relevant to Health Maintenance Results * HIV Antigen Antibody Combo Frio (07/18/2024 2:45 PM AUTO BODY MECHANIC APPRENTICE) HIV Antigen Antibody Combo Nonreactive Nonreactive 07/18/2024 11:04 PM AUTO BODY MECHANIC APPRENTICE [facility] Comment:Negative HIV-1 p24 a ntigen and HIV-1/2 antibody screening test results usually indicate the absence of HIV-1 and HIV-2 infection. However, such negative results do not rule-out acute HIV infection. If acute HIV-1 or HIV-2 infection is suspected, detection of HIV-1 or HIV-2 RNA is recommended. This result is obtained using the Nga Elecsys HIV Duo method on the [place] [id number] immunoassay analyzer. Blood STRUCTURE OF RIGHT UPPER LIMB / Unknown Venipuncture / Unknown 07/18/2024 2:45 PM AUTO BODY MECHANIC APPRENTICE 07/18/2024 2:45 PM AUTO BODY MECHANIC APPRENTICE us Jeana Laurent MD LAB - BLOOD ORDERABLES Fi nal Result [facility] [place] [facility] [address] [facility], [address] [place] [address], [facility] * Hepatitis C antibody (07/18/2024 2:45 PM AUTO BODY MECHANIC APPRENTICE) Hepatitis C Antibody Nonreactive Nonreactive 07/18/2024 10:04 PM AUTO BODY MECHANIC APPRENTICE [facility] Comment:A nonreactive screen ing test result does not exclude the possibility of exposure to or infection with HCV. Nonreactive screening test results in individuals with prior exposure to HCV may be due to antibody levels below the limit of detection of this assay or lack of reactivity to the HCV antigens used in this assay. Patients with recent HCV infections (<3 months from time of exposure) may have false- negative HCV antibody results due to the time needed for seroconversion (average of 8 to 9 weeks). Blood STRUCTURE OF RIGHT UPPER LIMB / Unknown Venipuncture / Unknown 07/18/2024 2:45 PM AUTO BODY MECHANIC APPRENTICE 07/18/2024 2:45 PM AUTO BODY MECHANIC APPRENTICE us Jeana Laurent MD LAB - BLOOD ORDERABLES Fi nal Result LABORATORY [facility] [place] [address] [facility], [address] [phone] * Pap imaged thin layer screen with HPV - recommended age 30 - 65 (09/01/2022 11:21 AM AUTO BODY MECHANIC APPRENTICE) Interpretation Negative for Intraepithelial Lesion or Malignancy (NILM) 09/03/2022 11:56 AM AUTO BODY MECHANIC APPRENTICE [facility] at 1156 AUTO BODY MECHANIC APPRENTICE Comment Papanicolaou Test Limitations: Cervical cytology is a screening test with limited sensitivity, and regular screening is critical for cancer prevention. Pap tests are primarily effective for the diagnosis/prevent ion of squamous cell carcinoma, not adenocarcinoma or other cancers. 09/03/2022 11:56 AM AUTO BODY MECHANIC APPRENTICE [facility] Specimen Adequacy Satisfactory for evaluation, endocervical/rosen sformation zone component present 09/03/2022 11:56 AM AUTO BODY MECHANIC APPRENTICE [facility] Clinical Information none 09/03/2022 11:56 AM AUTO BODY MECHANIC APPRENTICE [facility] Reflex Testing Yes regardless of result 09/03/2022 11:56 AM AUTO BODY MECHANIC APPRENTICE [facility] Previous Abnormal? No 09/03/2022 11:56 AM [facility] Performing Labs The technical component of this testing was completed at [facility] 09/03/2022 11:56 AM AUTO BODY MECHANIC APPRENTICE [facility] Brushing CERVIX UTERI STRUCTURE / Unknown Non-blood Collection / Unknown 09/01/2022 11:21 AM AUTO BODY MECHANIC APPRENTICE 09/01/2022 11:28 AM AUTO BODY MECHANIC APPRENTICE Jeana Laurent MD LAB - BEAKER AP Final Res ult [facility] Special[facility] Lab [address] [facility], [address] [address], [facility] [phone] * HPV High Risk Types DNA Cervical (09/01/2022 11:21 AM AUTO BODY MECHANIC APPRENTICE) Other HR HPV Negative Negative 09/05/2022 2:00 PM AUTO BODY MECHANIC APPRENTICE [facility] HPV16 DNA Negative Negative 09/05/2022 2:00 PM AUTO BODY MECHANIC APPRENTICE [facility] HPV18 DNA Negative Negative 09/05/2022 2:00 PM AUTO BODY MECHANIC APPRENTICE [facility] FINAL DIAGNOSIS This patient's sample is negative for HPV DNA. This test was developed and its performance characteristics determined by the [facility], Molecular Diagnostics Laboratory. It has not been cleared or approved by the FDA. The laboratory is regulated under CLIA as qualified to perform high-complexity testing. This test is used for clinical purposes. It should not be regarded as investigational or for research. METHODOLOGY: The Nga [place] 4800 system uses automated extraction, simultaneous amplification of HPV (L1 region) and beta-globin, followed by real time detection of fluorescent labeled HPV and beta globin using specific oligonucleotide probes. The test specifically identifies types HPV 16 DNA and HPV 18 DNA while concurrently detecting the rest of the high risk types (31, 33, 35, 39, 45, 51, 52, 56, 58, 59, 66 or 68). COMMENTS: This test is not intended for use as a screening device for woman under age 30 with normal cervical cytology. Results should be correlated with cytologic and histologic findings. Close clinical followup is recommended. 09/05/2022 2:00 PM AUTO BODY MECHANIC APPRENTICE [facility]ST[facility] Brushing CERVIX UTERI STRUCTURE / Unknown Non-blood Collection / Unknown 09/01/2022 11:21 AM AUTO BODY MECHANIC APPRENTICE 09/04/2022 9:13 AM AUTO BODY MECHANIC APPRENTICE Jeana Laurent MD LAB - BLOOD ORDERABLES Fi nal Result [facility] [address] [facility] [address], [address] [place] [phone], [facility] [phone] * COLONOSCOPY - HIM SCAN (03/02/2019) Historical Provider PROCEDURES Final Result * MA Diagnostic Right w/Black (09/15/2018 3:32 PM AUTO BODY MECHANIC APPRENTICE) Anatomical Region Laterality Modality Breast Bilateral Mammography Impressions 09/15/2018 4:06 PM AUTO BODY MECHANIC APPRENTICE IMPRESSION: BI-RADS CATEGORY: 2 - Benign Finding(s). RECOMMENDED FOLLOW-UP: Annual Mammography. The patient was given the results of the examination. BJORN BRIGGS MD Narrative 09/15/2018 4:06 PM AUTO BODY MECHANIC APPRENTICE Examination: Right breast digital diagnostic mammography and digital breast tomosynthesis with computer aided detection, and focused right breast ultrasound. History/Family history: Screening callback. Prior breast biopsy - patient reports fibroadenoma approximately 5 years ago, initially detected on routine screening mammogram prior to initiating infertility treatment. A release was obtained during evaluation in an attempt to obtain prior imaging from [place], [place]. Technique: Tomosynthesis BREAST DENSITY: Heterogeneously dense Findings: Additional mammographic views were obtained to further evaluate possible asymmetry superior right breast described on 09/02/2018 baseline screening mammogram. Additional mammographic views and targeted right breast ultrasound could not confirm any suspicious finding. No suspicious finding superior right breast. Mammographic views demonstrate an oval isodense circumscribed mass and adjacent biopsy clip right breast 10:00 position, middle depth. At 10:00 position 5 cm from nipple with ultrasound, there is an oval isodense mass without malignant features, 1.2 x 0.6 x 1.1 cm, that correlates with mammography and area of prior biopsy. Both the technologist and radiologist scanned the patient with ultrasound. Sujey Oden MD [facility] MAMMOGRAPHY ORDERABLES Final Result * (ABNORMAL) Lipid Profile (04/08/2018 11:51 AM CDT) Cholesterol 235(H) <=199 mg/dL 04/08/2018 3:10 PM CDT [facility] Triglycerides 162(H) <=149 mg/dL 04/08/2018 3:10 PM CDT [facility] Direct Measure HDL 54 >=50 mg/dL 04/08/2018 3:10 PM CDT [facility] LDL Cholesterol Calculated 149(H) <=129 mg/dL 04/08/2018 3:10 PM CDT [facility] Patient Fasting > 8hrs? Yes 04/08/2018 3:10 PM CDT [facility] Blood specimen (specimen) Venipuncture / Unknown 04/08/2018 11:51 AM CDT 04/08/2018 2:26 PM CDT Reece Fernández MD LAB - BLOOD ORDERABLES Asha spain Result Performing Organization Address City/State/[facility] Co de Phone Number [facility] [address] [address], [facility] [address] [address] * Basic metabolic panel (04/08/2018 11:51 AM CDT) Sodium 136 136 - 145 mmol/L 04/08/2018 3:10 PM CDT [facility] Potassium 3.9 3.5 - 5.0 mmol/L 04/08/2018 3:10 PM CDT [facility] Chloride 105 98 - 107 mmol/L 04/08/2018 3:10 PM CDT [facility] Carbon Dioxide (CO2) 22 22 - 31 mmol/L 04/08/2018 3:10 PM CDT [facility] Anion Gap 9 5 - 18 mmol/L 04/08/2018 3:10 PM CDT [facility] Glucose 92 70 - 125 mg/dL 04/08/2018 3:10 PM CDT [facility] Calcium 9.3 8.5 - 10.5 mg/dL 04/08/2018 3:10 PM CDT [facility] Urea Nitrogen 13 8 - 22 mg/dL 04/08/2018 3:10 PM CDT [facility] Creatinine 0.77 0.60 - 1.10 mg/dL 04/08/2018 3:10 PM CDT [facility] GFR Estimate If Black >60 >60 mL/min/1.7 3m2 04/08/2018 3:10 PM CDT [facility] GFR Estimate >60 >60 mL/min/1.7 3m2 04/08/2018 3:10 PM CDT [facility] Blood specimen (specimen) Venipuncture / Unknown 04/08/2018 11:51 AM CDT 04/08/2018 2:26 PM CDT Narrative [facility] - 04/08/2018 3:10 PM CDT Fasting Glucose reference range is 70-99 mg/dL per [place] Diabetes Association (ADA) guidelines. Reece Fernández MD LAB - BLOOD ORDERABLES Asha spain Result [facility] [address] [address], [facility] [address] [place] [id number] from Last 3 Months or Most Recently Relevant to Health Maintenance Insurance [facility] none (Work) [id number] [place] [id number] [facility] Care Teams Professor Of Forest Planning Relationship Specialty Start Date End Date Reece Fernández MD [address] [facility] [address] [place] [address] PCP - General Internal Medicine 07/13/17 Sujey Oden MD [address] [facility] [address] [place] [address] dry cans back tender 07/20/15 Jeana Laurent MD [address] [facility] [address] [place] [address] Assigned OBGYN Provider 08/06/24
--- OUTSIDE RECORDS SUMMARY | 2025-05-15 09:27 | XMS_ITS | Encounter Summary ---
Author Organization [facility] Address [address] [facility] [place] [address] Care Team Providers Care Plant Operations Worker Name Role Phone Confirmed, No Pcp Primary Care Provider UnavailSujey Mota MD Unavailable [phone] [facility] Primary Care Provider Reece Fernández MD Primary Care Provider Dayami Clements MD Unavailable [phone] Reece Fernández MD Unavailable Unavailabl Rebecca Mccormick MD Unavailable [phone] Jeana Laurent MD Unavailable [phone] Jeana Laurent MD Unavailable [phone] Encounter Details Date Type Department Care Team (Late st Contact Info) Description 12/17/2016 MyC Medical Advice [facility] [address] [facility] [address] [place] [address] Christiane Corey, [facility] [address] [place] [address] Social History Tobacco Use Types Packs/Day Years Used Date Smoking Tobacco: Never Smokeless Tobacco: Never Alcohol Use Standard Drinks/Week Comments No 0 (1 standard drink = 0.6 oz pur e alcohol) Comments Yes Sex and Gender Information Value Date Recorded Sex Assigned at Female 06/06/2022 9:25 AM CDT Legal Sex Female 3:18 PM VAN LOADER Gender Identity Female 06/06/2022 9:25 AM CDT [...] documented as of this encounter Care Teams Plant Operations Worker Relationship Specialty Start Date End Date Confirmed, No Pcp PCP - General 07/20/15 02/23/17 [facility] [address] [place] [address] PCP - General 02/24/17 07/12/17 Reece Fernández [place] [address] [place] [address] PCP - General Internal Medicine 07/13/17 Sujey Oden MD [address] [place] [address] [place] [address] ic engineer 07/20/15 Dayami Keys MD [address] [place] [address] [place] [address] Assigned OBGYN Provider 07/06/20 2 Reece Fernández MD Assigned PCP 02/27/21 04/13/21 Rebecca Weiss MD [address] [place] [address] Assigned PCP 04/14/21 02/28/22 [place] [address] [place] [address] Assigned OBGYN Provider 09/06/22 Jeana Laurent MD [address] [facility], [address] [address] Assigned OBGYN Provider 08/06/24 documented as of this encounter
--- OUTSIDE RECORDS SUMMARY | 2025-05-15 09:27 | XMS_ITS | Encounter Summary ---
Author Organization [place] Address [address] [place] [address] Care Team Providers Care Zinc Plate Cutter Name Role Phone Sujey Oden MD Unavailable [phone] Reece Fernández MD Primary Care Provider Unav Jeana Baxter MD Unavailable [phone] Encounter Details Date Type Department Care Team (Late st Contact Info) Description 01/19/2025 MyC Medical Advice [facility] [address] [place] [id number] Lavern Trevino Social History Tobacco Use Types Packs/Day Years Used Date Smoking Tobacco: Never Smokeless Tobacco: Never Alcohol Use Standard Drinks/Week Comments No 0 (1 standard drink = 0.6 oz pur e alcohol) PHQ-2 Answer Date Recorded PHQ-2 Score 0 07/18/2024 Adolescent Education Answer Date Record ed Getting School Help Needed Not on file 06/05 Comments No Sex and Gender Information Value Date Recorded Sex Assigned at Female 06/06/2022 9:25 AM CDT Legal Sex Female 3:18 PM NURSES ASSISTANT Gender Identity Female 06/06/2022 9:25 AM CDT [...] Total Score: 0 09/04/20 17 11:12 AM NURSES ASSISTANT documented as of this encounter Care Teams Zinc Plate Cutter Relationship Specialty Start Date End Date Reece Fernández MD [address] [place] [address] [place] [address] PCP - General Internal Medicine 07/13/17 Sujey Oden MD [address] [place] [address] [place] [address] silk conditioner 07/20/15 Jeana Laurent MD [address] [facility], [facility] [address] [place] [address] Assigned OBGYN Provider 08/06/24 documented as of this encounter
--- OUTSIDE RECORDS SUMMARY | 2025-05-15 09:27 | XMS_ITS | Encounter Summary ---
Author Organization [place] Address [address] [facility] [place] [address] Care Team Providers Care Broadcast Producer Name Role Phone Confirmed, No Pcp Primary Care Provider Unavaila Sujey Hernandez MD Unavailable [phone] [facility] Primary Care Provider Reece Fernández MD Primary Care Provider Dayami Clements MD Unavailable [phone] Reece Fernández MD Unavailable [facility] Rebecca Mccormick MD Unavailable [phone] Jeana Laurent MD Unavailable [phone] Jeana Laurent MD Unavailable [phone] Encounter Details Date Type Department Care Team (Late st Contact Info) Description 04/11/2016 MyC Medical Advice [facility] [place] [address] 3rd Floor,[address] [place] [facility] [address] [place] [address] Sujey Oden MD [address] [place] [address] Social History Tobacco Use Types Packs/Day Years Used Date Smoking Tobacco: Never Smokeless Tobacco: Never Alcohol Use Standard Drinks/Week Comments Yes 0 (1 standard drink = 0.6 oz pur e alcohol) social Comments No Sex and Gender Information Value Date Recorded Sex Assigned at Female 06/06/2022 9:25 AM CDT Legal Sex Female 3:18 PM GAS SPECIALIST Gender Identity Female 06/06/2022 9:25 AM CDT Sexual Orientation Straight 06/06/2022 9: 25 AM CDT documented as of this encounter Plan of Treatment Not on file documented as of this encounter Visit Diagnoses Not on filedocumented in this encounter Additional Health Concerns Assessment Noted Time PHQ-9 Depression Total Score: 0 01/24/20 16 7:15 AM CDT documented as of this encounter Care Teams Broadcast Producer Relationship Specialty Start Date End Date Confirmed, No Pcp PCP - General 07/20/15 02/23/17 [facility] [address] [place] [address] PCP - General 02/24/17 07/12/17 Reece Fernández [place] [address] [place] [address] PCP - General Internal Medicine 07/13/17 Sujey Oden MD [address] [place], [place] [address] radiology physician assistant 07/20/15 Dayami Keys MD [address] [place], [place] [address] Assigned OBGYN Provider 07/06/20 2 Reece Fernández MD Assigned PCP 02/27/21 04/13/21 Rebecca Weiss MD [address] [place] [address] Assigned PCP 04/14/21 02/28/22 [place] [address] [place] [address] Assigned OBGYN Provider 09/06/22 Jeana Laurent MD [address] [address] Assigned OBGYN Provider 08/06/24 documented as of this encounter
--- OUTSIDE RECORDS SUMMARY | 2025-05-15 09:27 | XMS_ITS | Encounter Summary ---
Author Organization [place] Address [address] [facility] [place] [address] Care Team Providers Care Epilepsy Physician Name Role Phone Sujey Oden MD Unavailable [phone] [facility] And Surgery Primary Care Provider Reece Fernández MD Primary Care Provider Dayami Clements MD Unavailable [phone] Reece Fernández MD Unavailable Unavailabl e Rebecca Weiss MD Unavailable [phone] Jeana Laurent MD Unavailable [phone] Jeana Laurent MD Unavailable [phone] Encounter Details Date Type Department Care Team (Late st Contact Info) Description 06/26/2017 [facility] Medical Advice [facility] [employer] [address] [place] [address] 3rd Floor,[address] [place] [facility] [address] [place] [phone] Rank Apurva Pavon RN Social History Tobacco Use Types Packs/Day Years Used Date Smoking Tobacco: Never Smokeless Tobacco: Never Alcohol Use Standard Drinks/Week Comments No 0 (1 standard drink = 0.6 oz pur e alcohol) Comments Yes Sex and Gender Information Value Date Recorded Sex Assigned at Female 06/06/2022 9:25 AM CDT Legal Sex Female 3:18 PM INTAKE RN Gender Identity Female 06/06/2022 9:25 AM CDT [...] documented as of this encounter Care Teams Epilepsy Physician Relationship Specialty Start Date End Date [place] [facility] [address] [place] [address] PCP - General 02/24/17 07/12/17 Reece Fernán[place] [address] [place] [address] PCP - General Internal Medicine 07/13/17 Sujey Oden MD [address] [place] [address] lead sales consultant 07/20/15 Dayami Keys MD [address] [place] [address] Assigned OBGYN Provider 07/06/20 2 Reece Fernández MD Assigned PCP 02/27/21 04/13/21 Rebecca Weiss MD [address] [place] [address] Assigned PCP 04/14/21 02/28/22 [place] [address] [place] [address] Assigned OBGYN Provider 09/06/22 Jeana Laurent MD [address] [facility], [address] [address] Assigned OBGYN Provider 08/06/24 documented as of this encounter
--- OUTSIDE RECORDS SUMMARY | 2025-05-15 09:27 | XMS_ITS | Encounter Summary ---
Author Organization [place] Address [facility] [place] [address] Care Team Providers Care Dental Ceramist Helper Name Role Phone Sujey Oden MD Unavailable [phone] Reece Fernández MD Primary Care Provider Unav ailable Jeana Laurent MD Unavailable [phone] Reason for Referral * Diagnostic Imaging Ultrasound (Routine) - Pending Review Specialty Diagnoses / Procedures Referred By Contac t Referred To Contact Radiology. Diagnoses Pelvic pain in female Procedures US Pelvic Complete with Transvaginal Jeana Laurent MD [address] [address] Phone: tel: fax: Referral ID Status Reason Start Date Expiration Date V isits Requested Visits Authorized [id number] Pending Review 01/18/2025 01/18/2026 1 1 Reason for Visit * Reason Onset Date Comments Pelvic Pain 01/17/2025 Encounter Details Date Type Department Care Team (Late st Contact Info) Description 01/17/2025 [facility] [address] [place] [phone] Jeana Laurent MD [address], [facility] [address] [place], [place] [id number] Pelvic Pain Social History Tobacco Use Types Packs/Day Years [...] AM CDT Legal Sex Female 3:18 PM SKILLS 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 Order placed for pelvic US. Sherri Mabry RN * Telephone Encounter - Jeana Laurent MD - 01/18/2025 8:53 AM CDT Yes, let's start with a pelvic ultrasound to check IUD location and look for any pathology causing that pain. We can always schedule a virtual or other visit if need be based on findings from US and persistence of the symptoms. Jeana Laurent MD, MPH [facility] certified ethical hacker * Telephone Encounter - Petra Mabry RN - 01/18/2025 8:20 AM CDT Pt sent a my chart message with concerns of some sharp stabbing pain on the left side of her abd on01/13 and more twinge like pain in the same area yesterday. She did have some spotting/discharge mid December. She has a Mirena IUD in place. Would you like the pt to have a pelvic US? Petra Rankin RN [employer] SAL[employer] DEPARTMENT CLERK documented in this encounter Plan of Treatment Not on file documented as of this encounter Results * (ABNORMAL) US Pelvic Complete with Transvaginal (02/01/2025 12:45 PM CDT) Anatomical Region Laterality Modality Abdomen/Pelvis Ultrasound Narrative 02/01/2025 4:01 PM CDT [facility] ULTRASOUND - PELVIC ACCOUNTING PRACTICE MANAGER- Transabdominal and Transvaginal Referring MD: Jeana Laurent MD CLINICAL INFORMATION Indications for ultrasound: Pain - Pelvic pain LMP: 23 Jan 2025 Hormones: IUD mirena Measurements: Uterus: 9.7 x 5.9 x 5.9 cm Position is anteverted. Contour is irregular w/ myomata: 1 Right 3.9 x 3.1 x 2.3 cm and 2 Fundal Anterior 3.5 x 3.3 x 3.7 cm. Endo cav: 4.2 mm Smooth/regular/wnl Right ovary: 2.9 x 1.7 x 1.5 cm Wnl Left ovary: 1.8 x 1.7 x 1.1 cm Wnl Cul de sac: no free fluid Technique: Transvaginal Imaging performed Transabdominal Imaging performed 3D imaging performed Impression: 1. IUD in appropriate position within the endometrial cavity. 2. Slightly enlarged fibroid uterus. One fibroid on the right is 3.9cm and the second is fundal measuring 3.7cm. 3. Normal bilateral ovaries. Jeana Laurent MD Note: federal law requires the release of results to patients even prior to the ordering provider viewing the result. Your provider will notify you, generally within 24 hours, of any critical results. If follow up is necessary, you will be notified at that time. Normal results, and abnormal but non-urgent results, will generally be addressed within 48-72 hours. us Jeana Laurent MD [facility] US ORDERABLES Final R esult documented in this encounter Visit Diagnoses Diagnosis Pelvic pain in female- Primary Unspecified symptom associated with female genital organs Pelvic pain in female Unspecified symptom associated with female genital organs documented in this encounter Additional Health Concerns Assessment Noted Time PHQ-9 Depression Total Score: 0 09/04/20 17 11:12 AM SKILLS INSTRUCTOR documented as of this encounter Care Teams Dental Ceramist Helper Relationship Specialty Start Date End Date Reece Fernández MD [address] [place] [address] PCP - General Internal Medicine 07/13/17 Sujey Oden MD [address] [place] [address] certified ethical hacker 07/20/15 Jeana Laurent MD [address] [facility] [address] [place], [place] [address] Assigned OBGYN Provider 08/06/24 documented as of this encounter
--- OUTSIDE RECORDS SUMMARY | 2025-05-15 09:27 | XMS_ITS | Encounter Summary ---
Author Organization [place] Address [address] [place] [address] Care Team Providers Care Guest Services Agent Name Role Phone Sujey Oden MD Unavailable Reece Fernández MD Primary Care Provider Unav ailable Jeana Laurent MD Unavailable [phone] Jeana Laurent MD Unavailable Encounter Details Date Type Department Care Team (Late st Contact Info) Description 09/01/2022 MyC Medical Advice [facility] [place] [address] [place] [address] Jeana Laurent MD [address], [address] [place] [address] Yeast infection of the vagina (Primary Dx) Social History Tobacco Use Types Packs/Day Years Used Date Smoking Tobacco: Never Smokeless Tobacco: Never Alcohol Use Standard Drinks/Week Comments No 0 (1 standard drink = 0.6 oz pur e alcohol) PHQ-2 Answer Date Recorded PHQ-2 Score 0 09/22/2018 Comments No Sex and Gender Information Value Date Recorded Sex Assigned at Female 06/06/2022 9:25 AM CDT Legal Sex Female 3:18 PM SENIOR PRODUCT DESIGNER Gender Identity Female 06/06/2022 9:25 AM CDT Sexual Orientation Straight 06/06/2022 9: 25 AM CDT 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 No / Unsure 09/01/2022 10:45 AM SENIOR PRODUCT DESIGNER documented as of this encounter Plan of Treatment Not on file documented as of this encounter Visit Diagnoses Diagnosis Yeast infection of the vagina- Primary Candidiasis of vulva and vagina documented in this encounter Additional Health Concerns Assessment Noted Time PHQ-9 Depression Total Score: 0 09/04/20 17 11:12 AM SENIOR PRODUCT DESIGNER documented as of this encounter Care Teams Guest Services Agent Relationship Specialty Start Date End Date Reece Fernández MD [address] [facility] [address] [place] [address] PCP - General Internal Medicine 07/13/17 Sujey Oden MD [address] [facility] [address] [place] [address] sound editor 07/20/15 [place] [address] [place] [address] Assigned OBGYN Provider 09/06/22 Jeana Laurent MD [address] [place], [facility] [address] [place] [address] Assigned OBGYN Provider 08/06/24 documented as of this encounter
[2025-05-15 09:39] VITALS: BP 115/75; PULSE 82; RESP 16; TEMP 36.7; O2SAT 98; BMI 30.4
--- NOTE | 2025-05-15 09:59 | ED.GENADULT ---
HPI - General Adult General Chief complaint: Post Op Complication Stated complaint: surgical incision needs to get checked Time Seen by Provider: 05/15/25 09:43 History of Present Illness HPI narrative: Patient is a 45-year-old woman who had breast reduction surgery this summer. She has good wound healing on the right but has some minor scabbing and openness to the inferior incision on the left. There is a small amount of serosanguineous drainage but no signs of infection no surrounding erythema no nausea no vomiting no fevers no chills no discomfort. Patient is noted the 2 of the scabs of recently come off and her drainage seems to have picked up a slight bit. Related Data Home Medications ?Medication ?Instructions ?Recorded ?Confirmed spironolactone 50 mg tablet 50 mg PO DAILY 12/26/23 05/15/25 Allergies Allergy/AdvReac Type Severity Reaction Status Date / Time Sulfa (Sulfonamide Allergy Mild Rash Verified 05/15/25 09:32 Antibiotics) Review of Systems Status of ROS: Reports: 10 or more systems reviewed and unremarkable except as noted in History and below Exam Narrative: Exam Narrative: EXAM GENERAL: Patient appears comfortable and well. EYES: No scleral icterus. ENT: Tympanic membranes and oropharynx normal. THYROID: no thyroid nodules or thyromegaly. LYMPH: No supraclavicular or cervical lymphadenopathy. SKIN: Visible skin seen during exam normal or with benign process only. EXT: No dependent lower extremity pedal edema. HEART: Regular rate and rhythm with no murmurs, rubs, or gallops. LUNGS: Clear to auscultation bilaterally with no crackles or wheezes. ABD: Soft, non tender, non distended. PSYCH: Good eye contact, speech is not pressured. Breast exam shows a good wound healing on the right with small area of open Dom[place] the inferior incisions with a 3 less than 0.5 cm openings. She has no palpable abscess or deep swelling. No other findings. Const: Vital Signs, click to edit/add: Vital Signs - 24 hr 05/15/25 09:39 Temperature 98.0 F Pulse Rate [Pulse Oximeter] 82 Respiratory Rate 16 Blood Pressure [Ri ght Upper Arm] 115/75 Pulse Oximetry 98 Oxygen Delivery Me thod Room Air Course Course ED Course: Patient seen examined. I do think she has a small area of seroma with a normal discharge. I do not palpate any deep abnormalities and at this time I did offer reassurance as well as changing the wound dressing. She does have my cell phone number as a nor personally and she can call me any time. Otherwise she will keep her follow-up appointment with her surgeon. Vital Signs Vital signs: Initial Vital Signs Temperature 98.0 F 05/15/25 09:39 Temperature Source Temporal Artery Scan 05/15/25 09:39 Pulse Rate 82 05/15/25 09:39 Respiratory Rate 16 05/15/25 09:39 Blood Pressure 115/75 05/15/25 09:39 Blood Pressure Mean 88 05/15/25 09:39 Blood Pressure Position Sitting 05/15/25 09:39 Pulse Oximetry 98 05/15/25 09:39 Oxygen Delivery Method Room Air 05/15/25 09:39 Vital Signs Temperature 98.0 F 05/15/25 09:39 Pulse Rate 82 05/15/25 09:39 Respiratory Rate 16 05/15/25 09:39 Blood Pressure 115/75 05/15/25 09:39 Pulse Oximetry 98 05/15/25 09:39 Oxygen Delivery Method Room Air 05/15/25 09:39 Temperature 98.0 F 05/15/25 09:39 Pulse Rate 82 05/15/25 09:39 Respiratory Rate 16 05/15/25 09:39 Blood Pressure 115/75 05/15/25 09:39 Pulse Oximetry 98 05/15/25 09:39 Oxygen Delivery Method Room Air 05/15/25 09:39 Discharge Plan Discharge Clinical Impression: Seroma Patient Disposition: Home, Self-Care Condition: Stable Additional Instructions: Triple antibiotic or vasaline to keep wound soft. Dressing changes as discussed Follow up per scheduled visit Call Dr Madera anytime if concerns develop. Activity Level: No Restrictions Discharge Diet: Regular Prescriptions: No Action spironolactone 50 mg tablet 50 mg PO DAILY Follow Up/Referrals: Melida James MD [Primary Care Provider, Family Practice] Stand Alone Forms: [employer] Info Instructions
== END 2025-05-15 10:16 | disposition home or self-care (01) ==
LOC: ED 10:12
PROVIDERS: Emergency Provider Internal Medicine; PCP Family Medicine
DX: L76.34 Postprocedural seroma of skin and subcutaneous tissue following other procedure (principal)
CPT/HCPCS: 99283